=== PATIENT | female | born 1960 | race Caucasian/White ===

== ENCOUNTER 2016-11-29 09:56 | Emergency (ER) | payer OTHER ==
[~2016-11-29] VITALS: Ht 165.1 cm; Wt 56.7 kg
[~2016-11-29 09:56] MED LIST: ASPIRIN81 M1 PO; CELEXA40 MG PO; CYMBALTA30 MG PO; FLOVENT HFA12 GM IH; HYDROXYZINE HCL50 MG PO; LISINOPRIL-HYDR1 TA1 PO; LISINOPRIL10 M1 PO; LISINOPRIL2.5 MG PO; LISINOPRIL20 MG PO; LISINOPRIL5 MG PO; LOVASTATIN20 MG PO; MECLIZINE25 MG PO; METOPROLOL100 MG PO; MOBIC15 MG PO; MOBIC7.5 MG PO; NICOTINE T21 MG/24 H T; NORVASC2.5 MG PO; OMEPRAZOLE40 MG PO; PREDNISONE10 MG PO; VENTOLIN H0.09 MG/AC INH; VITAMIN D1000 IU PO; ZESTRIL,PRINIVI20 MG PO
[2016-11-29] MEDS ORDERED: ULTRAM50 MG PO (10:54)
[2016-11-29] MEDS ORDERED: OMNICEF300 MG PO (10:54)
== END 2016-11-29 11:04 | disposition home or self-care (01) ==
LOC: ED 09:56
DX: H66.91 Otitis media, unspecified, right ear (principal); F17.200 Nicotine dependence, unspecified, uncomplicated; Z79.899 Other long term (current) drug therapy; Z88.6 Allergy status to analgesic agent

== ENCOUNTER 2019-01-25 18:42 | Emergency (ER) | payer OTHER ==
[~2019-01-25] VITALS: Ht 165.1 cm; Wt 54.9 kg
[~2019-01-25 18:42] MED LIST changes: +OMNICEF300 MG PO; +ULTRAM50 MG PO
== END 2019-01-25 20:42 | disposition home or self-care (01) ==
LOC: ED 18:42
DX: S90.121A Contusion of right lesser toe(s) without damage to nail, initial encounter (principal); K21.9 Gastro-esophageal reflux disease without esophagitis; J44.9 Chronic obstructive pulmonary disease, unspecified; E78.00 Pure hypercholesterolemia, unspecified; I10 Essential (primary) hypertension; Z88.6 Allergy status to analgesic agent; Z79.899 Other long term (current) drug therapy; X58.XXXA Exposure to other specified factors, initial encounter; Y93.89 Activity, other specified; Y92.89 Other specified places as the place of occurrence of the external cause; Y99.8 Other external cause status

== ENCOUNTER 2019-04-09 12:16 | Emergency (ER) | payer OTHER ==
[~2019-04-09] VITALS: Ht 165.1 cm; Wt 53.5 kg
== END 2019-04-09 14:30 | disposition home or self-care (01) ==
LOC: ED 12:16
DX: S86.912A Strain of unspecified muscle(s) and tendon(s) at lower leg level, left leg, initial encounter (principal); S70.02XA Contusion of left hip, initial encounter; I10 Essential (primary) hypertension; K21.9 Gastro-esophageal reflux disease without esophagitis; J44.9 Chronic obstructive pulmonary disease, unspecified; E78.00 Pure hypercholesterolemia, unspecified; F17.200 Nicotine dependence, unspecified, uncomplicated; Z88.6 Allergy status to analgesic agent; Z79.2 Long term (current) use of antibiotics; Z79.899 Other long term (current) drug therapy; W01.0XXA Fall on same level from slipping, tripping and stumbling without subsequent striking against object, initial encounter; Y93.01 Activity, walking, marching and hiking; Y92.89 Other specified places as the place of occurrence of the external cause; Y99.8 Other external cause status

== ENCOUNTER 2020-07-05 11:49 | Inpatient (IN) | payer OTHER ==
[~2020-07-05] VITALS: Ht 165.1 cm; Wt 50.8 kg
[2020-07-05 12:07] VITALS: BP 169/89
[2020-07-05 12:17] LABS: BASO % 0.5 % (0.0-1.0); EOS % 0.5 % (1.0-4.0); HEMATOCRIT 42.2 % (37.0-47.0); LYMPH # 1.3 10*3/uL (1.3-4.4); LYMPH % 15.1 % (27.0-41.0); MEAN CELL VOLUME 90.6 fl (81.0-99.0); MEAN CORPUSCULAR HGB 31.8 pg (27.0-31.0); MEAN CORPUSCULAR HGB CONC 35.1 g/dl (33.0-37.0); MONO # 0.8 10*3/uL (0.1-1.0); MONO % 8.9 % (3.0-9.0); NEUT # 6.3 10*3/uL (2.3-7.9); NEUT % 74.6 % (47.0-73.0); PLATELET COUNT AUTOMATED 336 10*3/uL (130-400); RED BLOOD COUNT 4.66 10*6/uL (4.10-5.10); RED CELL DISTRI WIDTH 11.9 % (0-14.5); WHITE BLOOD COUNT 8.4 10*3/uL (4.8-10.8)
[2020-07-05 12:27] LABS: ACT PARTIAL THROMBO TIME 26.4 SECONDS (20.0-32.1)
[2020-07-05 12:33] LABS: ALKALINE PHOSPHATASE 73 U/L (45-117); BUN 7 mg/dl (7-24); CHLORIDE 89 mmol/L (98-107); CREATININE 0.81 mg/dL (0.55-1.02); LIPASE 106 U/L (73-393); POTASSIUM 3.3 mmol/L (3.5-5.1); SGOT/AST 23 IU/L (3-35); SGPT/ALT 24 U/L (12-78); SODIUM 122 mmol/L (136-145); TOTAL PROTEIN 7.5 gm/dL (6.4-8.2)
[2020-07-05 12:46] VITALS: BP 170/92
[2020-07-05 14:29] LABS: BILIRUBIN Negative (Negative); BLOOD 1+ (Negative); CLARITY Clear (Clear); COLOR Yellow (Yellow); GLUCOSE Negative (Negative); KETONE 1+ (Negative); LEUKO ESTERASE Trace (Negative); NITRITE Negative (Negative); PH 7.5 (4.5-8.0)
[2020-07-05 14:42] LABS: RBC 16-20 rbc/hpf (0-2); WBC 41-50 wbc/hpf (0-5)
[2020-07-05 14:43] LABS: BACTERIA 4+; EPITHELIAL CELLS 0-2
[2020-07-05 15:37] VITALS: BP 165/93
[2020-07-05 16:12] VITALS: BP 152/91
[2020-07-05 18:10] VITALS: BP 168/101
[2020-07-05] MEDS ORDERED: HYDR25T PO (18:15)
[2020-07-05] MEDS ORDERED: AMLODIPINE BESYL5 MG PO (18:18)
[2020-07-05] MEDS ORDERED: CELECOXIB200 M1 PO (18:19)
[2020-07-05] MEDS ORDERED: ALL DAY ALLERGY10 M2 PO (18:20)
[2020-07-05 20:14] LABS: BUN 6 mg/dl (7-24); CHLORIDE 95 mmol/L (98-107); POTASSIUM 3.4 mmol/L (3.5-5.1); SODIUM 128 mmol/L (136-145)
[2020-07-05 20:41] VITALS: BP 142/90
[2020-07-06] VITALS: BP 124/74
[2020-07-06 06:03] LABS: ALBUMIN 3.8 gm/dl (3.1-4.5); ALKALINE PHOSPHATASE 66 U/L (45-117); BUN 8 mg/dl (7-24); CHLORIDE 99 mmol/L (98-107); POTASSIUM 4.1 mmol/L (3.5-5.1); SGOT/AST 18 IU/L (3-35); SGPT/ALT 22 U/L (12-78); SODIUM 131 mmol/L (136-145); TOTAL PROTEIN 6.9 gm/dL (6.4-8.2)
[2020-07-06 06:14] LABS: BASO # 0.1 10*3/uL (0.0-0.1); BASO % 0.9 % (0.0-1.0); EOS # 0.1 10*3/uL (0.0-0.4); EOS % 1.8 % (1.0-4.0); HEMATOCRIT 44.1 % (37.0-47.0); LYMPH # 1.5 10*3/uL (1.3-4.4); LYMPH % 22.5 % (27.0-41.0); MEAN CELL VOLUME 93.6 fl (81.0-99.0); MEAN CORPUSCULAR HGB 31.8 pg (27.0-31.0); MEAN PLATELET VOLUME 9.5 fl (9.6-12.3); MONO # 0.9 10*3/uL (0.1-1.0); MONO % 13.1 % (3.0-9.0); NEUT # 4.2 10*3/uL (2.3-7.9); NEUT % 61.3 % (47.0-73.0); PLATELET COUNT AUTOMATED 364 10*3/uL (130-400); RED BLOOD COUNT 4.71 10*6/uL (4.10-5.10); RED CELL DISTRI WIDTH 12.3 % (0-14.5); WHITE BLOOD COUNT 6.9 10*3/uL (4.8-10.8)
[2020-07-06 06:53] LABS: VITAMIN D, 25-HYDROXY 20.5 ng/mL (30-100)
[2020-07-06 07:53] VITALS: BP 152/92
[2020-07-06 12:00] VITALS: BP 156/88
[2020-07-06 16:00] VITALS: BP 158/97
[2020-07-06 20:00] VITALS: BP 156/88
[2020-07-07] VITALS: BP 172/90
[2020-07-07 05:46] VITALS: BP 154/88
[2020-07-07 06:36] LABS: BUN 11 mg/dl (7-24); CHLORIDE 104 mmol/L (98-107); CREATININE 0.67 mg/dL (0.55-1.02); POTASSIUM 4.1 mmol/L (3.5-5.1); SODIUM 135 mmol/L (136-145)
[2020-07-07 08:00] VITALS: BP 147/89
[2020-07-07 12:00] VITALS: BP 173/98
[2020-07-07] MEDS ORDERED: TRELEGY ELLIPT1 EACH INH (14:15)
[2020-07-07] MEDS ORDERED: PROVENTIL HFA6.7 GM INH (14:17)
[2020-07-07] MEDS ORDERED: COREG3.125 MG PO (14:19)
== END 2020-07-07 16:05 | disposition home or self-care (01) | DRG 426 ==
LOC: ED 11:49 → 4E 16:23 → EDHOLD 16:23 → 4E 17:42
PROVIDERS: Emergency Medicine; Family Medicine; Hospitalist; Student in an Organized Health Care Education/Training Program; ADMIT Emergency Medicine; ATTEND Emergency Medicine
DX: E87.1 Hypo-osmolality and hyponatremia (principal); J44.9 Chronic obstructive pulmonary disease, unspecified; M19.90 Unspecified osteoarthritis, unspecified site; E87.6 Hypokalemia; F41.9 Anxiety disorder, unspecified; I10 Essential (primary) hypertension; R79.89 Other specified abnormal findings of blood chemistry; E87.8 Other disorders of electrolyte and fluid balance, not elsewhere classified; E78.5 Hyperlipidemia, unspecified; Z88.6 Allergy status to analgesic agent; Z91.81 History of falling; Z90.49 Acquired absence of other specified parts of digestive tract; Z83.3 Family history of diabetes mellitus; Z80.9 Family history of malignant neoplasm, unspecified; Z82.3 Family history of stroke; Z82.0 Family history of epilepsy and other diseases of the nervous system; Z83.79 Family history of other diseases of the digestive system; Z79.899 Other long term (current) drug therapy

== ENCOUNTER 2020-08-19 08:49 | Emergency (ER) | payer OTHER ==
[~2020-08-19] VITALS: Wt 51.3 kg
[~2020-08-19 08:49] MED LIST changes: +ALL DAY ALLERGY10 M2 PO; +AMLODIPINE BESYL5 MG PO; +CELECOXIB200 M1 PO; +COREG3.125 MG PO; +HYDR25T PO; +PROVENTIL HFA6.7 GM INH; +TRELEGY ELLIPT1 EACH INH
[2020-08-19 09:14] LABS: BASO # 0.1 10*3/uL (0.0-0.1); BASO % 0.8 % (0.0-1.0); EOS # 0.1 10*3/uL (0.0-0.4); EOS % 1.3 % (1.0-4.0); HEMATOCRIT 41.4 % (37.0-47.0); LYMPH # 1.8 10*3/uL (1.3-4.4); LYMPH % 22.4 % (27.0-41.0); MEAN CELL VOLUME 93.9 fl (81.0-99.0); MEAN CORPUSCULAR HGB 31.5 pg (27.0-31.0); MEAN CORPUSCULAR HGB CONC 33.6 g/dl (33.0-37.0); MONO # 0.6 10*3/uL (0.1-1.0); MONO % 7.8 % (3.0-9.0); NEUT # 5.3 10*3/uL (2.3-7.9); NEUT % 67.4 % (47.0-73.0); PLATELET COUNT AUTOMATED 362 10*3/uL (130-400); RED BLOOD COUNT 4.41 10*6/uL (4.10-5.10); RED CELL DISTRI WIDTH 13.4 % (0-14.5); WHITE BLOOD COUNT 7.9 10*3/uL (4.8-10.8)
[2020-08-19 09:30] LABS: ALKALINE PHOSPHATASE 66 U/L (45-117); BUN 14 mg/dl (7-24); CHLORIDE 103 mmol/L (98-107); CREATININE 0.71 mg/dL (0.55-1.02); LIPASE 125 U/L (73-393); POTASSIUM 3.8 mmol/L (3.5-5.1); SGOT/AST 18 IU/L (3-35); SGPT/ALT 22 U/L (12-78); SODIUM 137 mmol/L (136-145); TOTAL PROTEIN 7.4 gm/dL (6.4-8.2)
[2020-08-19 09:32] LABS: TROPONIN I < 0.015 ng/ml (<0.045)
[2020-08-19 09:57] LABS: BILIRUBIN Negative (Negative); BLOOD Negative (Negative); CLARITY Clear (Clear); COLOR Yellow (Yellow); GLUCOSE Negative (Negative); KETONE Trace (Negative); LEUKO ESTERASE 1+ (Negative); NITRITE Negative (Negative); SPECIFIC GRAVITY 1.015 (1.001-1.030)
[2020-08-19 10:34] LABS: WBC 16-20 wbc/hpf (0-5)
[2020-08-19 10:35] LABS: BACTERIA 1+
[2020-08-19] MEDS ORDERED: MECLIZINE HCL25 M2 PO (13:16)
[2020-08-19] MEDS ORDERED: ZOFRAN4 MG PO (13:16)
== END 2020-08-19 13:33 | disposition home or self-care (01) ==
LOC: ED 08:49
PROVIDERS: Emergency Medicine
DX: R42 Dizziness and giddiness (principal); Z88.5 Allergy status to narcotic agent; Z79.899 Other long term (current) drug therapy

== ENCOUNTER 2022-05-25 09:43 | Emergency (ER) | payer OTHER ==
[~2022-05-25] VITALS: Wt 59.0 kg
[~2022-05-25 09:43] MED LIST changes: +MECLIZINE HCL25 M2 PO; +ZOFRAN4 MG PO
== END 2022-05-25 12:18 | disposition home or self-care (01) ==
LOC: ED 09:43
DX: S09.90XA Unspecified injury of head, initial encounter (principal); K21.9 Gastro-esophageal reflux disease without esophagitis; J44.9 Chronic obstructive pulmonary disease, unspecified; E78.00 Pure hypercholesterolemia, unspecified; I10 Essential (primary) hypertension; Z88.6 Allergy status to analgesic agent; Z79.899 Other long term (current) drug therapy; Z90.49 Acquired absence of other specified parts of digestive tract; F17.200 Nicotine dependence, unspecified, uncomplicated; W17.89XA Other fall from one level to another, initial encounter; Y93.89 Activity, other specified; Y92.89 Other specified places as the place of occurrence of the external cause; Y99.8 Other external cause status